=== PATIENT | female | born 1970 | race Caucasian/White ===

== ENCOUNTER 2023-01-24 14:16 | Emergency (ER) | payer OTHER, SELFPAY ==
[2023-01-24 14:23] VITALS: BP 169/72; PULSE 89; RESP 18; TEMP 36.7; O2SAT 99; BMI 28.4
--- NOTE | 2023-01-24 14:31 | XR_ITS ---
[address] [address] Patient Name: NAOMI MOORE MRN: [id number] date: 1970 Sex: F Assigned Patient Location: ER Current Patient Location: ER Accession/Order Number: [id number] Exam Date: 01/24/2023 14:47 Report Date: 01/24/2023 15:09 At the request of: ANEESH ALAMO Procedure: XR tibia fibula RT 2V PROCEDURE: XR tibia fibula RT 2V HISTORY: Right torres pain COMPARISON: None. FINDINGS: BONES:No fracture, acute abnormality, or significant arthropathy. SOFT TISSUES:No visible soft tissue swelling. EFFUSION:None visible. OTHER: Negative. XR/XR tibia fibula RT 2V IMPRESSION: 1. Normal examination. Electronically authenticated by: HERBRET ZURITA Date: 01/24/2023 15:09
--- NOTE | 2023-01-24 14:32 | ED_ITS ---
HPI - Extremity Injury (Lower) General Chief Complaint: Extremity Injury, Lower Stated Complaint: LOWER EXTREMITY PAIN RIGHT LEG Time Seen by Provider: 01/24/23 14:22 Source: patient Mode of arrival: walk-in Limitations: no limitations History of Present Illness HPI Narrative: patient is a 52-year-old female who presents to the emergency department for the evaluation of pain radiating from the anterior right ankle into the lower anterior torres. She denies any mechanism of injury or trauma, no new shoes or different physical activity to precipitate pain in the lower leg. She states intermittently she will feel a sharp pain radiating from the anterior ankle into the torres. She states she had torres splints when she was a teenager. She has not had any calf pain, calf swelling, redness or wounds of the leg. She has no history of deep vein thrombosis or PE. Related Data Home Medications Medication Instructions Recorded Confirmed fluoxetine 20 mg tablet mg 01/24/23 trazodone 50 mg tablet 50 mg PO DAILY PRN insomnia 01/24/23 01/24/23 Previous Rx's Medication Instructions Recorded ketorolac 10 mg tablet 10 mg PO TID PRN pain #10 tabs 01/24/23 methocarbamol 750 mg tablet 750 mg PO TID PRN pain #20 tabs 01/24/23 prednisone 20 mg tablet 60 mg PO DAILY #12 tabs 01/24/23 Allergies Allergy/AdvReac Type Severity Reaction Status Date / Time cephalexin [From Keflex] AdvReac Intermediate Verified 01/24/23 14:23 pcn AdvReac Intermediate Uncoded 01/24/23 14:23 Review of Systems ROS Constitutional Denies: fever or chills Ears, nose, mouth, and throat Denies: throat pain or neck pain Respiratory Denies: shortness of breath Gastrointestinal Denies: nausea or vomiting Musculoskeletal Reports: extremity pain; Denies: back pain or neck pain Neurological Denies: headache Hematologic/Lymphatic Denies: easy bruising PFSH PFSH Social History Smoking status: Current every day smoker Exam Narrative Exam Narrative: Gen.: Awake, alert, in no distress Head: Normocephalic, atraumatic ENT: Moist mucous membranes Respiratory: No respiratory distress Extremities: Moves extremities equally, calves are soft and nontender. No sw elling noted of the lower extremities, no open wounds, red streaking. No bony point tenderness of the right anterior torres. No obvious deformity. No tenderness of the right ankle. Negative Homans sign Psych: Normal mood and affect Neuro: No focal neuro deficit Skin: Warm, dry, intact Constitutional Vital Signs, click to edit/add: Last Vital Signs Temp 98.0 F 01/24/23 14:23 Pulse 89 01/24/23 14:23 Resp 18 01/24/23 14:23 BP 169/72 H 01/24/23 14:23 Pulse Ox 99 01/24/23 14:23 O2 Del Method Room Air 01/24/23 14:23 Course Vital Signs Vital signs: Vital Signs Temperature 98.0 F 01/24/23 14:23 Pulse Rate 89 01/24/23 14:23 Respiratory Rate 18 01/24/23 14:23 Blood Pressure 169/72 H 01/24/23 14:23 Pulse Oximetry 99 01/24/23 14:23 Oxygen Delivery Method Room Air 01/24/23 14:23 Temperature 98.0 F 01/24/23 14:23 Pulse Rate 89 01/24/23 14:23 Respiratory Rate 18 01/24/23 14:23 Blood Pressure 169/72 H 01/24/23 14:23 Pulse Oximetry 99 01/24/23 14:23 Oxygen Delivery Method Room Air 01/24/23 14:23 MDM - Extremity Injury (Lower) MDM Narrative Medical decision making narrative: patient with no pain in the posterior calves. Her pain is localized to the right anterior ankle and distal torres. I have no concern that the patient has a deep vein thrombosis. patient was given education and reassurance. If she develops swelling or pain to the posterior calf, she should be reevaluated but at this time she has no complaints of posterior or even lateral/medial calf pain. All of her pain is concentrated on the right anterior torres at the ankle and distal tibia. we will treat for musculoskeletal pain in the right anterior tibia. She will be started on muscle relaxants, NSAIDs and a short course of steroids. Follow-up with PCP and return to the Emergency Room if symptoms change or worsen. Medical Records Attestation: I reviewed the patient's medical records. Imaging Data XR tib/fib right: Attestation: I have reviewed the pertinent imaging results. Radiologist's impression: Procedure: XR tibia fibula RT 2V PROCEDURE: XR tibia fibula RT 2V HISTORY: Right torres pain COMPARISON: None. FINDINGS: BONES:No fracture, acute abnormality, or significant arthropathy. SOFT TISSUES:No visible soft tissue swelling. EFFUSION:None visible. OTHER: Negative. IMPRESSION: 1. Normal examination. Electronically authenticated by: HERBERT ZURITA Date: 01/24/2023 15:09 Discharge Plan Discharge Chief Complaint: Extremity Injury, Lower Clinical Impression: Pain of right tibia Patient Disposition: Home, Self-Care Time of Disposition Decision: 15:16 Condition: Good Prescriptions / Home Meds: New prednisone 20 mg tablet 60 mg PO DAILY Qty: 12 0RF Rx Instructions: 3 tabs daily for 2 days, then 2 tabs daily for 2 days, then 1 tab daily for 2 days ketorolac 10 mg tablet 10 mg PO TID PRN (Reason: pain) Qty: 10 0RF methocarbamol 750 mg tablet 750 mg PO TID PRN (Reason: pain) Qty: 20 0RF No Action fluoxetine 20 mg tablet Hold Instructions: dc trazodone 50 mg tablet 50 mg PO DAILY PRN (Reason: insomnia) Instructions: Musculoskeletal Pain (ED) Stand Alone Forms: Portal Instructions Referrals: FENG ANGELO [Primary Care Provider] - 1 week
--- NOTE | 2023-01-24 14:33 | PC.NURSE ---
right anterior lower leg pain that is intermittent and reports as sharp . no known injuries or increased in movement or abnormal movements. pt has tried wrapping leg and topical pain reliever without relief. no pain in calf with flexion of right foot.
== END 2023-01-24 15:32 | disposition home or self-care (01) ==
PROVIDERS: Emergency Provider Emergency Medicine Emergency Medical Services
DX: M25.571 Pain in right ankle and joints of right foot (principal); Z79.899 Other long term (current) drug therapy; F17.210 Nicotine dependence, cigarettes, uncomplicated
CPT/HCPCS: 73590; 99283

== ENCOUNTER 2024-08-03 13:21 | Outpatient (OUT) | payer OTHER, SELFPAY ==
--- NOTE | 2024-08-03 13:24 | MM_ITS ---
Patient Name: NAOMI MOORE MR#: [id number] : 1970 Exam Date: 08/03/2024 Ordering Doctor: FENG ANGELO RADIOLOGY REPORT PROCEDURE: MM TOMOSYNTHESIS SCREENING BI COMPARISON: None. INDICATIONS: Screening Calculator Name NCI Breast Cancer Risk Assessment Tool 5 Year Breast Cancer Risk Not Reported. Lifetime Breast Cancer Risk Not Reported. Personal Breast Cancer No Personal Ovarian Cancer No Treatments None Family Cancers None LOCATION: [facility] BREAST COMPOSITION: The breasts are heterogeneously dense,which may obscure small masses. FINDINGS: DIAGNOSTIC CATEGORY 1--NEGATIVE. RIGHT BREAST: No significant suspicious finding. LEFT BREAST: No significant suspicious finding. RECOMMENDATIONS: ROUTINE MAMMOGRAM AND CLINICAL EVALUATION IN 12 MONTHS. PLEASE NOTE: A NORMAL MAMMOGRAM DOES NOT EXCLUDE THE POSSIBILITY OF BREAST CANCER. A CLINICALLY SUSPICIOUS PALPABLE LUMP SHOULD BE BIOPSIED. Dictated by: Caden Sepulveda DO on 08/05/2024 at 16:08 Approved by: Caden Sepulveda DO on 08/05/2024 at 16:17
== END 2024-08-03 13:22 | disposition home or self-care (01) ==
LOC: MAMMO 13:21
DX: Z12.31 Encounter for screening mammogram for malignant neoplasm of breast (principal)
CPT/HCPCS: 77063; 77067